=== PATIENT | female | born 1970 | race Caucasian/White ===

== ENCOUNTER 2017-04-12 10:23 | Emergency (ER) | payer BC, OTHER ==
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
[2017-04-12] MEDS ORDERED: KETOROLAC TROMETHAMINE 30 MG/ML VIAL IV ONE (11:09)
[2017-04-12] MEDS ORDERED: KETOROLAC TROMETHAMINE 30 MG/ML VIAL ONE (11:10)
[2017-04-12 11:42] VITALS: BP 119/86
== END 2017-04-12 12:00 | disposition home or self-care (01) ==
LOC: ER 10:23
DX: T14.90 Injury, unspecified (principal); V58.0XXA Driver of pick-up truck or van injured in noncollision transport accident in nontraffic accident, initial encounter; Y93.I9 Activity, other involving external motion; Y92.9 Unspecified place or not applicable

== ENCOUNTER 2017-05-30 06:39 | Emergency (ER) | payer BC, OTHER ==
--- NOTE | 2017-05-30 06:54 | ERNOTE ---
<Anabella Damon - Last Filed: 05/30/17 07:42> Headache ER HPI - Narrative Date of Service: 05/30/17 - General Presenting Symptoms: "migraine" Time Seen by Provider: 05/30/17 06:49 Source: patient Exam Limitations: no limitations - Immun/Allergies/Home Medications Immunizations: IMMUNIZATION HX Immunizations Up to Date Yes History of Influenza Vaccine No Hx Pneumococcal Vaccination No Allergies/Adverse Reactions: Allergies promethazine HCl [From Phenergan] Allergy (Verified 05/30/17 08:04) Home Medications: HOME MEDICATIONS Amitriptyline HCl 10 mg PO PRN PRN 05/30/15 [Last Taken Unknown] Cyclobenzaprine HCl [Flexeril] 10 mg PO TID PRN #30 tab 04/12/17 [Last Taken Unknown] Losartan Potassium [Cozaar] 25 mg PO DAILY 04/12/17 [Last Taken Unknown] Naproxen [Naprosyn] 500 mg PO BID #40 tablet 04/12/17 [Last Taken Unknown] - History of Present Illness Narrative: Here for a migraine headache which started two days ago. she has not taken any medications for her condition. She also has some photophobia and nausea. Headache did not begin as thunderclap. Not worse ever Review of Systems - Review of Systems Constitutional: Present: no symptoms reported EYE: Present: see HPI ENT: Present: other - headache Respiratory: Present: no symptoms reported Cardiology: Present: no symptoms reported Gastrointestinal/Abdominal: Present: nausea Genitourinary: Present: no symptoms reported Musculoskeletal: Present: no symptoms reported Skin: Present: no symptoms reported - Patient's Past Medical History Patient History - Medical: Headache Patient History - Cardiac/Respiratory: Hypertension Patient History - Cancer: No Hx of Cancer Patient History - Surgical Procedures: Cholecystectomy, Other Patient History - Other: None - Social History Living Situations: home Abuse History: No History of abuse Psych History: No pertinent hx Alcohol Use: none Drug Use: none - Immunizations Immunizations Up to Date: Yes Hx Pneumococcal Vaccination: No History of Influenza Vaccine: No Physical Exam - Physical Exam General Appearance: Present: wd/wn, alert, no apparent distress Head Exam: Present: normal inspection, no evidence of injury Eye Exam: Normal inspection: bilateral, PERRL: bilateral, EOMI: bilateral Ears, Nose, Throat: Present: normal ENT inspection Neck: Present: normal inspection, nontender Respiratory: Present: no respiratory distress, normal breath sounds, no accessory muscle use, chest nontender, lungs clear Cardiovascular/Chest: Present: regular rate, rhythm, no murmur, normal peripheral pulses Extremity Exam: Present: normal inspection, normal range of motion Neurological Exam: Present: alert, oriented, normal mood/affect, no motor/ sensory deficits ED Progress - Vital Signs Patient's Vital Signs:: I have reviewed the patient's vital signs. Vital Signs: Vital Signs 05/30/17 06:44 Temperature 36.4 C L Pulse Rate 67 Respiratory 12 Rate Blood Pressure 134/99 O2 Sat by Pulse 99 Oximetry - Progress/Reassessment Chief Complaint: Headache - Transfer of Care Physician Sign Out: Anabella Damon Receiving Physician: Cindi Randolph Plan - Plan Plan: This patient appears to be having a typical migraine this time patient will be given normal saline 1 L IV, Zofran 4 mg IV, Toradol 30 mg IV, and Dilaudid 0.5 mg IV. Departure Clinical Impression: Migraine headache Qualifiers: Migraine type: unspecified Status migrainosus presence: without status migrainosus Intractability: not intractable Qualified Code(s): G43.909 - Migraine, unspecified, not intractable, without status migrainosus - Departure Disposition: Home self-care Condition: Stable Instructions: Recurrent Migraine Headache, [id number] Additional Instructions: follow up with your doctor as needed Referrals: Sherrell Wills DO [Primary Care Provider] - <Cindi Randolph - Last Filed: 05/30/17 08:30> Headache ER HPI - Immun/Allergies/Home Medications Immunizations: IMMUNIZATION HX Immunizations Up to Date Yes History of Influenza Vaccine No Hx Pneumococcal Vaccination No ED Progress - Vital Signs Patient's Vital Signs:: I have reviewed the patient's vital signs. Vital Signs: Vital Signs 05/30/17 05/30/17 06:44 08:15 Temperature 36.4 C L Pulse Rate 67 65 Respiratory 12 12 Rate Blood Pressure 134/99 134/86 O2 Sat by Pulse 99 97 Oximetry - Progress/Reassessment Progress Note-Subjective: 05/30/17 08:28 Patient feeling much better after medications, ready to go home This is a typical migraine headache. She gets headaches every 1-2 months that she can usually handle at home, about once a years get headaches requiring medical attention
[2017-05-30] MEDS ORDERED: HYDROmorphone HCL 1 MG/ML DISP.SYRIN ONE (07:33)
[2017-05-30] MEDS ORDERED: ONDANSETRON HCL/PF 2 MG/ML VIAL ONE (07:34)
[2017-05-30] MEDS ORDERED: KETOROLAC TROMETHAMINE 30 MG/ML VIAL ONE (07:34)
[2017-05-30] MEDS: NORMAL SALINE 1,000 ML IV ONE (07:37)
[2017-05-30] MEDS: KETOROLAC TROMETHAMINE 30 MG/ML VIAL IV ONE (07:39)
[2017-05-30] MEDS: ONDANSETRON HCL/PF 2 MG/ML VIAL IV ONE (07:41)
[2017-05-30] MEDS: HYDROmorphone HCL 1 MG/ML DISP.SYRIN IV ONE (07:43)
[2017-05-30 08:16] VITALS: BP 134/86
== END 2017-05-30 08:44 | disposition home or self-care (01) ==
LOC: ER 06:39
DX: G43.909 Migraine, unspecified, not intractable, without status migrainosus (principal); I10 Essential (primary) hypertension
CPT/HCPCS: 96374; 96375; 99284; J2405